=== PATIENT | male | born 1930 | race Caucasian/White ===

== ENCOUNTER → 2019-06-02 | Outpatient (CLI) | payer MEDICARE, OTHER ==
--- NOTE | 2019-06-02 13:05 | KCIC ---
[facility] radiograph of the orbits 06/02/2019 CLINICAL HISTORY: Pre-MRI evaluation. History of metal exposure to the eyes. [place] digital radiograph of the skull were obtained with the patient looking up and down. No radiopaque foreign body is seen involving either orbit. The visualized paranasal sinuses are clear. No fracture is seen. IMPRESSION: No radiopaque foreign body is seen involving either orbit. Electronically signed by: Gumaro Caputo MD (06/02/2019 1:02 PM) [id number]
--- NOTE | 2019-06-02 13:40 | KCIC ---
MRI of the lumbar spine without contrast 06/02/2019 CLINICAL HISTORY: Severe low back pain. TECHNIQUE: Unenhanced T1-weighted and T2-weighted sagittal and axial and inversion recovery sagittal images of the lumbar spine were obtained. FINDINGS: The patient appears to have transitional vertebral anatomy. For the purposes of this dictation five lumbar vertebrae have been assumed. L5 is partially sacralized. A hypoplastic disc is seen at L5-S1. Very mild S-shaped curvature of the thoracolumbar spine is seen. Mild anterolisthesis of L4 in relation to L5 is noted. Degenerative signal changes and loss of height are seen involving all of the disks of the lumbar spine. Degenerative signal changes are seen within the marrow surrounding these discs. The conus medullaris is normal morphology, position, and signal characteristics. At the T11-12 disc space there is a minimal generalized disc bulge. Superimposed on this disc bulge is a right paracentral focal disc protrusion. This measures 3 mm in AP diameter. Degenerative changes are seen involving the facet joints bilaterally. These findings do not result in significant central spinal canal or neural foraminal stenosis. At the T12-L1, L1-2 and L2-3 disc spaces there are mild generalized disc bulges. Degenerative changes are seen involving the facet joints bilaterally. There is mild ligamentum flavum hypertrophy. These findings do not result in significant central spinal canal or neural foraminal stenosis. At the L3-4 disc space there is a mild to moderate generalized disc bulge. This is eccentric to the left. Degenerative changes are seen involving the facet joints bilaterally. There is moderate ligamentum flavum hypertrophy bilaterally. These findings when combined result in mild left greater than right central spinal canal stenosis. No neural foraminal stenosis is seen. At the L4-5 disc space there is a mild generalized disc bulge. Degenerative changes are seen involving the facet joints bilaterally. There is moderate ligament flavum hypertrophy bilaterally. A small to moderate-sized right facet joint effusion is seen. These findings when combined result in mild right greater than left central spinal canal stenosis. Mild to moderate right neural foraminal stenosis is seen. The left neural foramen is patent. At the L5-S1 disc space there is a minimal generalized disc bulge. Degenerative changes are seen involving the facet joints bilaterally. These findings do not result in significant central spinal canal or neural foraminal stenosis. 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 These findings result in mild left greater than right central spinal canal stenosis at L3-4 and mild right greater than left central spinal canal stenosis at L4-5. Mild to moderate right neural foraminal stenosis is seen at L4-5. Electronically signed by: Gumaro Caputo MD (06/02/2019 1:37 PM) [id number]
== END | disposition home or self-care (01) ==
LOC: KCIC MRI 12:20
PROVIDERS: ATTEND Family Medicine
DX: Z13.5 Encounter for screening for eye and ear disorders (principal); M51.35 Other intervertebral disc degeneration, thoracolumbar region; M47.817 Spondylosis without myelopathy or radiculopathy, lumbosacral region; M51.25 Other intervertebral disc displacement, thoracolumbar region; M48.061 Spinal stenosis, lumbar region without neurogenic claudication; M53.86 Other specified dorsopathies, lumbar region; M89.38 Hypertrophy of bone, other site
CPT/HCPCS: 70030; 72148

== ENCOUNTER → 2020-05-13 | Outpatient (CLI) | payer MEDICARE, OTHER ==
--- NOTE | 2020-05-15 22:59 | RAD ---
EXAM: NM PET/CT SKULL BASE TO MID THIGH EXAM DATE: 05/13/2020 INDICATION: Lung mass RADIOPHARMACEUTICAL: 13.0 mCi of F-18 Fluorodeoxyglucose (FDG) I.V. via the right forearm. TECHNIQUE: Patient weight: 190 pounds. Following at least four-hour fasting, the patient's blood gluc ose was 150 mg/dl. Approximately 1 hour and 30 minutes after administration of FDG, overlapping emis diana scanning was performed from the orbital meatal line through the pelvis. A low-dose CT was perfo rmed for attenuation correction purposes and anatomic localization. Fused images of PET and CT were r eviewed. Any standardized uptake values (SUV) reported are maximum values within a volume region of interest, expressed in gm/ml. COMPARISON: CT chest without IV contrast of 04/12/2020 FINDINGS: PET: In the head and neck, no abnormal FDG uptake is identified. In the chest, left level 1 axillary lymph node is slightly larger (image 103 of series 3 compared wit h image 27 of series [address]) and shows FDG uptake to a max SUV of 3.0. Right upper lobe lung mass involving the superior hilum shows abnormal FDG uptake to max SUV of 4.7. There is a precarinal lymph node that shows uptake to max SUV of 4.0. Background FDG activity in the mediastinum measures 3.1. The right hilum shows increased uptake to max SUV of 6.3. The left hilum shows increased FDG activity to a max SUV of 3.8. Subcarinal lymph node with associated calcification shows FDG uptake to max SUV of 3.5. In the abdomen and pelvis, asymmetric uptake in the right anterior inferior iliac spine to max SUV of 3.9 is noted. Background uptake in the liver is 3.[address]: Irregular mass in the right upper lobe persists and measures 3.8 x 2.4 x 4.8 cm in transverse by AP b y craniocaudal dimensions. There is rounded atelectasis in the left lower lobe and platelike atelectasis in the lingula with vol ume loss. No pleural effusion. Abdomen and pelvis shows prior partial sigmoid colectomy in the setting of extensive colonic divertic ulosis and previous ventral abdominal mesh hernia repair. Bones show degenerative changes in the lumbar spine. IMPRESSION: Right upper lobe lung mass shows abnormal FDG uptake and is associated with abnormal uptake in the me diastinal lymph nodes, bilateral vanessa, and left axilla. Differential considerations include an inflam matory process versus a primary lung neoplasm. Recommend correlation with tissue sampling. Electronically signed by: Monica Wu MD (05/15/2020 10:57 PM) [facility]
== END ==
LOC: PETSC 10:25
PROVIDERS: ATTEND Internal Medicine Pulmonary Disease
DX: R91.8 Other nonspecific abnormal finding of lung field (principal); J98.11 Atelectasis; M47.816 Spondylosis without myelopathy or radiculopathy, lumbar region; Z90.49 Acquired absence of other specified parts of digestive tract
CPT/HCPCS: 78815; A9552

== ENCOUNTER → 2021-06-20 | Outpatient (CLI) | payer MEDICARE, OTHER ==
[~2021-06-20] MED LIST: ACET325T9 PO; ALBU2.5V8 IH; APIX2.5T PO; ATOR20TA58 PO; CHOL500021 PO; CYCL1DRO EACHEYE; FLUT1DIS3 IH; LEVO100T5 PO; LIDO30CR2 TP; LIDO700A21 TP; LISI10TA16 PO; OMEP20CA16 PO; TIOT18CA IH; VERA240C2 PO; VITA1TAB19 PO; [UNRECOGNIZED DRUG - CODE] PO
--- NOTE | 2021-06-20 15:47 | PDOC1 ---
INITIAL PAIN CONSULT DATE OF SERVICE: DOS: DATE: 06/20/21 TIME: 15:40 CHIEF COMPLAINT: Chief Complaint: Low back and right lower extremity pain HISTORY OF PRESENT ILLNESS: 89-year-old male presents with history of pain low back right lower extremity rating the posterior gluteus and the lateral thigh patient reports into the posterior thigh and calf occasionally but mostly in the back and the upper thigh and hip right and left more on the right side patient reports being on for many years worse over the past 1 to 2 years and not the result of any specific injury asked that he is aware of but is getting worse with time is worse with walking standing weightbearing change positions also prolonged sitting patient reports its better with laying down does not generally awaken from sleep at night subjective bowel bladder control but does affect his go to walk does not use any assistive devices currently patient reports recent physical therapy which was helpful but only for about a week patient reports he takes multiple medications and some anti-inflammatories as well as over the counter Tylenol. Patient reports the pain is throbbing in the back intermittent intensity again worse with walking standing shooting and aching in the leg on the right side intermittently as well. Patient rates his disability rating 0-10 10 me the worst is a 5-6 with family home responsibilities as well as recreation for self- care and 5 life support activities. Patient did have a CT scan of the lumbar spine showing severe to space narrowing and mild cervical disc bulge and mild facet arthropathy at L4-5 with L5-L6 small cervical disc bulge and right greater than left facet arthropathy and hypertrophic changes causing moderate right neural foraminal stenosis and mild left neuroforaminal stenosis with spinal canal mildly narrowed with possible impression on the bilateral subarticular recesses. Patient reports no loss of motor function with significant fatigability of the right lower extremity with ambulation and standing. Patient reports no bowel or bladder incontinence. PAST MEDICAL HISTORY: PMH: Arthritis, gastroesophageal reflux, hypertension, atrial fibrillation, hyperlipidemia, shortness of breath, type 2 diabetes, detached retina, peripheral neuropathy. PREVIOUS SURGERIES: Past Surgical Hx: Bilateral cataract extraction, tonsillectomy, colon resection CURRENT MEDICATIONS: Current Meds: Active Scripts Medications Dose Route/Sig Max Daily Dose Days Date Category Dose Instructions Tylenol (Acetaminophen) 325 Mg Tablet 1-2 Tab PO QID 06/20/21 Reported B Complex (Vitamin B Complex) 1 Each Tablet 2 Tab PO DAILY 30 06/20/21 Reported Verapamil Er (Verapamil Hcl) 240 Mg Cap24h.pel 120 Mg PO DAILY 06/20/21 Reported Spiriva (Tiotropium [place]) 18 Mcg Cap.w.dev 2 Inh IH DAILY 06/20/21 Reported Omeprazole 20 Mg Capsule.dr 1 Cap PO DAILY 06/20/21 Reported Eye Multivitamin Tablet (Vit A/Vit C/Vit E/Zinc/Copper) 1 Each Tablet 1 Each PO HS 06/20/21 Reported Lisinopril 10 Mg Tablet 1 Tab PO DAILY 06/20/21 Reported Lidocaine PATCH (Lidocaine) 1 Each Adh..patch 1 Each TP DAILY 06/20/21 Reported REMOVE AFTER 12 HOURS Lidocaine-Prilocaine Cream (Lidocaine/Prilocaine) 30 Gm Cream..g. 30 Gm TP BID 06/20/21 Reported Levothyroxine Sodium 100 Mcg Tablet 1 Tab PO DAILY 06/20/21 Reported Advair 250-50 Diskus (Fluticasone/Salmeterol) 1 Each Disk.w.dev 1 Puff IH BID 06/20/21 Reported Restasis (Cyclosporine) 1 Each Droperette 1 Drop EACHEYE BID 06/20/21 Reported D3-50 (Cholecalciferol (Vitamin D3)) 50,000 Unit Capsule 50,000 Mcg PO DAILY 06/20/21 Reported Atorvastatin Calcium 20 Mg Tablet 20 Mg PO HS 06/20/21 Reported Eliquis (Apixaban) 2.5 Mg Tablet 2.5 Mg PO BID 06/20/21 Reported Proair Hfa Inhaler (Albuterol Sulfate) 8.5 Gm Hfa.aer.ad 2 Puff IH PRN Q4-6HRS PRN 21 06/20/21 Reported ALLERGIES; Allergies: Coded Allergies: No Known Drug Allergies (Unverified , 06/20/21) FAMILY HISTORY: Family Hx: Patient was adopted and does not know of any family history SOCIAL HISTORY: Social Hx: Patient is under alcohol does not smoke not use any illegal licit recreational drugs is retired is takes care of his adult son who is wheelchair-bound and lives locally in [facility]. REVIEW OF SYSTEMS: ROS: Positive for those items mentioned in history of present illness, all systems are reviewed, otherwise negative ,and are complete full and well-documented on patient's chart. PHYSICAL EXAM: VS: Blood pressure is 130/70 pulse 83 respiration 16 temperature 98.4 F height is 5 feet 10 inches weight is 195 pounds. PE: PHYSICAL EXAMINATION: GENERAL: The patient is awake, alert, oriented, appropriate, very pleasant in demeanor HEENT: Shows normocephalic, atraumatic. Extraocular movements are intact and symmetrical. Oral cavity: Mucous membranes moist and pink. NECK: Shows anterior throat supple without palpable lymphadenopathy noted. Swallow reflex symmetrical. CHEST: Shows normal on inspection. Breath sounds are clear bilaterally, no rales rhonchi wheezes auscultated. HEART: Shows S1, S2 clear. No murmurs auscultated. ABDOMEN: Soft, nontender, nondistended. No palpable organomegaly is noted. BACK: Shows spine grossly in the midline. Normal-appearing cervical lordotic curvature. There is mildly increased thoracic kyphosis, some moderate flattening of the lumbar lordotic curvature. Lumbar paraspinous muscles show symmetrical on inspection, on palpation shows some moderate tenderness diffusely throughout the upper, middle and lower distribution of the paraspinous muscles bilaterally and also into the lower thoracic paraspinous musculature, firm and tender, but without specific trigger points, without radiation of pain. The patient has good rotational motion of the lumbar spine, both laterally as well as extension and flexion without significant difficulty. No tenderness over the spinous processes, sacrum or sacroiliac regions. EXTREMITIES: Lower extremities show deep tendon reflexes 1+ in the patellar and tendo calcaneus tendons. Motor exam is 4 on a scale of 5 with right dorsiflexion, extension, quadriceps and hamstring flexion and 5/5 on the left. Peripheral pulses are 1+ posterior tibial. No peripheral edema is noted bilaterally. Lower extremities are warm and dry to touch, equal in color and appearance. Patient is able to stand has difficulty standing on his toes as his balance as well as weight on his right foot but is walking with a slight shuffling gait apparently favoring the right lower extremity mildly but again not use any assistive device such as canes or walkers to ambulate. SKIN: Shows warm and dry, good turgor. No edema. No sores, rashes or bruising throughout. IMPRESSION: Impression: 89-year-old male with long history of low back pain and now right lower extremity pain in a radicular fashion. MRI scan lumbar spine as noted. Hypertension Arthritis Type 2 diabetes Atrial fibrillation Hyperlipidemia Peripheral neuropathy Plan: Options were discussed with the patient including serve medical management physical therapies interventional techniques. Patient like to pursue interventional techniques. We discussed a lumbar epidural steroid injections descriptions as well as anatomical models to describe the procedure. We will first wait and check with patient's primary physician regarding holding his Eliquis for 3 days prior to procedure. If deemed safe and appropriate will have patient hold his and return for lumbar epidural steroid injection. MARIAH PATEL MD Jun 20, 2021 15:47
== END | disposition home or self-care (01) ==
LOC: PNCL 12:50
PROVIDERS: ATTEND Anesthesiology
DX: M54.50 Low back pain, unspecified (principal); M79.604 Pain in right leg; M19.90 Unspecified osteoarthritis, unspecified site; K21.9 Gastro-esophageal reflux disease without esophagitis; I10 Essential (primary) hypertension; I48.91 Unspecified atrial fibrillation; E11.9 Type 2 diabetes mellitus without complications; Z79.899 Other long term (current) drug therapy; Z98.890 Other specified postprocedural states
CPT/HCPCS: G0463

== ENCOUNTER → 2021-07-03 | Outpatient (CLI) | payer MEDICARE, OTHER ==
[~2021-07-03] MED LIST changes: +DEXAMETHASONE PRES.FREE 10 MG/ML VIAL. ONE; +IOHEXOL 180 MG/ML 10 ML VIAL. ONE
--- NOTE | 2021-07-03 15:01 | PDOC ---
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 History or Present Illness: HPI: 89-year-old male returns for follow-up status post clearance to hold his Eliquis and has been off this now for 3 days complaining of pain in her low back and into the bilateral lower extremities patient reports is worse with walking and standing changing positions awaken from sleep about once a night patient reports is better with sitting or lying down but worse with walking standing patient reports the pain is across the low back and the bilateral lower extremities posterior gluteus posterior thigh posterior calves with walking patient reports his feet are numb as well with activity and standing patient reports is an 8 on scale 10 is worse over the past week 7 on average 3 to [place] is a 3 today patient report is aching and tingling in the low back with radiating pain in the lower extremities as noted. Patient reports no loss of motor function but significant fatigability of the lower extremities no bowel or bladder incontinence currently. Physical Exam: VS: Blood pressure is 126/64 pulse 71 respirations 18 temperature 97.3 F PE: PHYSICAL EXAMINATION: GENERAL: The patient is awake, alert, oriented, appropriate, very pleasant in demeanor, patient companied by his spouse and son. HEENT: Shows normocephalic, atraumatic. Extraocular movements are intact and symmetrical. Oral cavity: Mucous membranes moist and pink. NECK: Shows anterior throat supple without palpable lymphadenopathy noted. Swallow reflex symmetrical. CHEST: Shows normal on inspection. Breath sounds are clear bilaterally. HEART: Shows S1, S2 clear. No murmurs auscultated. ABDOMEN: Soft, nontender, nondistended. No palpable organomegaly is noted. No rebound or guarding demonstrated. BACK: Shows spine grossly in the midline. Normal-appearing cervical lordotic curvature. There is mildly increased thoracic kyphosis, some moderate flattening of the lumbar lordotic curvature. Lumbar paraspinous muscles show symmetrical on inspection, on palpation shows some moderate tenderness diffusely throughout the upper, middle and lower distribution of the paraspinous muscles, but without specific trigger points, without radiation of pain. The patient has good rotational motion of the lumbar spine, both laterally as well as extension and flexion without significant difficulty. EXTREMITIES: Lower extremities show deep tendon reflexes 1+ in the patellar and tendo calcaneus tendons. Motor exam is 4 on a scale of 5 with right dorsiflexion, extension, quadriceps and hamstring flexion and 5/5 on the left. Peripheral pulses are 1+ posterior tibial. No peripheral edema is noted bilaterally. Lower extremities are warm and dry to touch, equal in color and appearance. SKIN: Shows warm and dry, good turgor. No edema. No sores, rashes or bruising throughout. Procedure: Procedure: Options discussed with the patient. Patient's old chart was reviewed his current medication regimen updated current review of systems updated today as well. We will proceed with a lumbar epidural steroid injection today with fluoroscopic guidance. Risks were discussed including but not limited to: Bleeding, infection, possibility of epidural hematoma and subsequent neurological compromise, dural puncture, headaches, spinal cord and/or nerve damage, side effects of steroid medication, and poor results regarding pain control. Patient understands and wished to proceed. Patient return to clinic in approximately 2 weeks for follow-up, was counseled as to return appointment, active level, and side effect beware. Patient will restart his Eliquis tomorrow 07/04/2021. Medication Injected: Med Injected: Procedure is lumbar epidural steroid injection under local anesthetic using sterile prep and drape at the L5-S1 level using C-arm fluoroscopic guidance in both AP and lateral views medications injected is 120 mg methylprednisolone +10mL preservative-free normal saline and 2 mL contrast- condition at discharge is stable patient tolerated procedure well had no complications. Condition at Discharge: Condition at Discharge: Condition at discharge stable, patient tolerated the procedure well and had no complications. MARIAH PATEL MD Jul 03, 2021 15:01
--- NOTE | 2021-07-03 15:02 | PDOC4 ---
Procedure Note: ICD 10 Code: ICD 10 Code: M54.17 M51.7 M48.07 Procedure Note: Patient was consented for lumbar epidural steroid injection with fluoroscopic guidance. Risks were discussed including but not limited to: Bleeding, infection, possibility of epidural hematoma and subsequent neurological compromise, dural puncture, headaches, spinal cord and/or nerve damage, side effects of steroid medication, and poor results regarding pain control. Patient understands and wished to proceed. Procedure is lumbar epidural steroid injection under local anesthetic using sterile prep and drape at the L5-S1 level using C-arm fluoroscopic guidance in both AP and lateral views medications injected is 120 mg methylprednisolone +10mL preservative-free normal saline and 2 mL contrast- condition at discharge is stable patient tolerated procedure well had no complications. MARIAH PATEL MD Jul 03, 2021 15:02
== END | disposition home or self-care (01) ==
LOC: PNCL 13:56
PROVIDERS: ATTEND Anesthesiology
DX: M51.16 Intervertebral disc disorders with radiculopathy, lumbar region (principal); M48.061 Spinal stenosis, lumbar region without neurogenic claudication; Z79.899 Other long term (current) drug therapy
CPT/HCPCS: 62323; J1100; Q9965

== ENCOUNTER → 2021-07-24 | Outpatient (CLI) | payer MEDICARE, OTHER ==
[~2021-07-24] MED LIST changes: -DEXAMETHASONE PRES.FREE 10 MG/ML VIAL. ONE; -IOHEXOL 180 MG/ML 10 ML VIAL. ONE
--- NOTE | 2021-07-24 14:37 | PDOC ---
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 History or Present Illness: HPI: 89-year-old male returns for follow-up status post lumbar epidural steroid injection patient reports about 30% improvement overall initially was doing much better but the pain is returned in the low back more on the left side than the right but present bilaterally patient reports is radiating the posterior gluteus posterior thigh posterior calf worse with walking and standing and also worse at night patient reports initially was doing much better with distance walking doing household activities travel with greater ease and comfort as well but the pain is returning in the low back and the left leg as noted. Patient rates as an 8 on scale 10 is worse over the past week for an average to its least is a 4 today. Patient scribes aching and dull in the back radiating to the left lower extremity is noted. Patient reports is better with sitting or laying down generally is not awakening from sleep at night most nights. Patient complains of bilateral peripheral neuropathic pain in the lower extremities in a stocking distribution as well which is present throughout the day and the evening but does not generally awaken her from sleep. Patient has tried multiple medications for this without significant reduction in pain such as gabapentin or Lyrica and topical creams and ointments well without resolution. Patient reports no bowel or bladder incontinence. Physical Exam: VS: Blood pressure is 132/66 pulse 77 respirations 18 temperature 90.2 F height 5 feet 10 inches weight 196 pounds. PE: PHYSICAL EXAMINATION: GENERAL: The patient is awake, alert, oriented, appropriate, very pleasant in demeanor HEENT: Shows normocephalic, atraumatic. Extraocular movements are intact and symmetrical. Patient wearing eyeglasses. Oral cavity: Mucous membranes moist and pink. NECK: Shows anterior throat supple without palpable lymphadenopathy noted. Swallow reflex symmetrical. CHEST: Shows normal on inspection. Breath sounds are clear bilaterally. HEART: Shows S1, S2 clear. No murmurs auscultated. ABDOMEN: Soft, nontender, nondistended. No palpable organomegaly is noted. No rebound or guarding demonstrated. BACK: Shows spine grossly in the midline. Normal-appearing cervical lordotic curvature. There is slightly increased thoracic kyphosis, some minor flattening of the lumbar lordotic curvature. Lumbar paraspinous muscles show symmetrical on inspection, on palpation shows some moderate tenderness diffusely throughout the upper, middle and lower distribution of the paraspinous muscles without specific trigger points, without radiation of pain. The patient has good rotational motion of the lumbar spine, both laterally as well as extension and flexion without significant difficulty. EXTREMITIES: Lower extremities show deep tendon reflexes 1+ in the patellar and tendo calcaneus tendons. Motor exam is 4 on a scale of 5 with right dorsiflexion, extension, quadriceps and hamstring flexion and 5/5 on the left. Peripheral pulses are 1+ posterior tibial. No peripheral edema is noted bilaterally. Lower extremities are warm and dry to touch, equal in color and appearance. SKIN: Shows warm and dry, good turgor. No edema. No sores, rashes or bruising throughout. Procedure: Procedure: Options were discussed with the patient. Patient's old chart was reviewed his current medication regimen updated current review of systems updated today as well. Patient remains on his Eliquis and we will have him hold this for 48 hours prior to second lumbar epidural steroid injection. Patient still complaining of low back pain with radicular symptoms in the left lower extremity as previous. Patient will follow up as scheduled after holding Eliquis for 48 hours. Medication Injected: Med Injected: None Condition at Discharge: Condition at Discharge: Condition at discharge is stable. MARIAH PATEL MD July 24, 2021 14:37
== END | disposition home or self-care (01) ==
LOC: PNCL 13:32
PROVIDERS: ATTEND Anesthesiology
DX: M51.16 Intervertebral disc disorders with radiculopathy, lumbar region (principal); M48.061 Spinal stenosis, lumbar region without neurogenic claudication; Z79.899 Other long term (current) drug therapy
CPT/HCPCS: 99212; G0463

== ENCOUNTER → 2021-07-28 | Outpatient (CLI) | payer MEDICARE, OTHER ==
[~2021-07-28] MED LIST changes: +DEXAMETHASONE PRES.FREE 10 MG/ML VIAL. ONE; +IOHEXOL 180 MG/ML 10 ML VIAL. ONE
--- NOTE | 2021-07-28 11:26 | PDOC ---
Progress Note - Pain Clinic Date of Service: DOS: DATE: 07/28/21 TIME: Diagnosis: Dx: Lumbar radiculopathy with lumbar degenerative disease and lumbar spinal stenosis History or Present Illness: HPI: 89-year-old male returns for follow-up status post lumbar epidural steroid injection x1. Patient reports about 85% improvement initially but now down about 30% improvement overall in the low back and left lower extremity patient reports some pain in the right side as well as the left but primarily on the left side posterior gluteus posterior thigh radiating to the posterior calf and foot patient reports some on the right side now as well but traditionally just on the left side patient reports is a 9 out of 10 is worse over the past week 5 months average 3 its least is a 5 today. Patient reports no bowel or bladder incontinence no loss of motor function but again said some pain now on the right side as well as the left worse with walking and standing. Patient reports significant fatigability primarily in the left lower extremity but also in the right. Patient reports no bowel or bladder incontinence. Physical Exam: VS: Blood pressure is 123/61 pulse 79 respirations are 18 temperature is 98.1 F height is 5 foot 11 inches weight is 197 pounds. PE: PHYSICAL EXAMINATION: GENERAL: The patient is awake, alert, oriented, appropriate, very pleasant in demeanor HEENT: Shows normocephalic, atraumatic. Extraocular movements are intact and symmetrical. Oral cavity: Mucous membranes moist and pink. NECK: Shows anterior throat supple without palpable lymphadenopathy noted. Swallow reflex symmetrical. CHEST: Shows normal on inspection. Breath sounds are clear bilaterally, distant but no rales or rhonchi auscultated. HEART: Shows S1, S2 clear. No murmurs auscultated. ABDOMEN: Soft, nontender, nondistended. No palpable organomegaly is noted. BACK: Shows spine grossly in the midline. Normal-appearing cervical lordotic curvature. There is mildly increased thoracic kyphosis, some flattening of the lumbar lordotic curvature. Lumbar paraspinous muscles show symmetrical on inspection, on palpation shows some moderate tenderness diffusely throughout the upper, middle and lower distribution of the paraspinous muscles, without spe cific trigger points, without radiation of pain. The patient has good rotational motion of the lumbar spine, both laterally as well as extension and flexion without significant difficulty. No tenderness over the spinous processes, sacrum or sacroiliac regions. EXTREMITIES: Lower extremities show deep tendon reflexes 1 in the patellar and tendo calcaneus tendons. Motor exam is 4 on a scale of 5 with right dorsiflexion, extension, quadriceps and hamstring flexion and 5/5 on the left. Peripheral pulses are 1+ posterior tibial. No peripheral edema is noted bilaterally. Lower extremities are warm and dry to touch, equal in color and appearance. SKIN: Shows warm and dry, good turgor. No edema. No sores, rashes or bruising throughout. Procedure: Procedure: Options were discussed with the patient. Patient's old chart was reviewed his his current medication regimen updated current review of systems updated today as well. Patient has been off his Eliquis now for 2 and half days and we will proceed with a lumbar epidural steroid injection with fluoroscopic guidance. Risks were discussed including but not limited to: Bleeding, infection, possibility of epidural hematoma and subsequent neurological compromise, dural puncture, headaches, spinal cord and/or nerve damage, side effects of steroid medication, and poor results regarding pain control. Patient understands and wished to proceed. Patient will return to clinic in approximately 2 weeks for follow-up, was counseled as return appointment, activity level, and side effect to be aware of. Patient will restart Eliquis tomorrow 07/29. Medication Injected: Med Injected: Procedure is lumbar epidural steroid injection under local anesthetic using sterile prep and drape at the L5-S1 level using C-arm fluoroscopic guidance in both AP and lateral views medications injected is 20 mg dexamethasone +10mL preservative-free normal saline and 2 mL contrast- condition at discharge is stable patient tolerated procedure well had no complications. Condition at Discharge: Condition at Discharge: Condition at discharge stable, paced tolerated procedure well and had no complications. MARIAH PATEL MD July 28, 2021 11:26
--- NOTE | 2021-07-28 11:26 | PDOC4 ---
Procedure Note: ICD 10 Code: ICD 10 Code: M54.17 M5 1.87 M48.07 Procedure Note: Patient was consented for lumbar epidural steroid injection with fluoroscopic guidance. Risks were discussed including but not limited to: Bleeding, infection, possibility of epidural hematoma and subsequent neurological compromise, dural puncture, headaches, spinal cord and/or nerve damage, side effects of steroid medication, and poor results regarding pain control. Patient understands and wished to proceed. Procedure is lumbar epidural steroid injection under local anesthetic using kym rile prep and drape at the L5-S1 level using C-arm fluoroscopic guidance in both AP and lateral views medications injected is 20 mg dexamethasone +10mL preservative-free normal saline and 2 mL contrast- condition at discharge is stable patient tolerated procedure well had no complications. MARIAH PATEL MD July 28, 2021 11:26
== END | disposition home or self-care (01) ==
LOC: PNCL 10:08
PROVIDERS: ATTEND Anesthesiology
DX: M51.16 Intervertebral disc disorders with radiculopathy, lumbar region (principal); M48.061 Spinal stenosis, lumbar region without neurogenic claudication; Z79.899 Other long term (current) drug therapy; Z98.890 Other specified postprocedural states
CPT/HCPCS: 62323; J1100; Q9965